=== PATIENT | male | born 1970 | race Caucasian/White ===

== ENCOUNTER 2019-04-07 21:53 | Emergency (ER) | payer SELFPAY ==
[~2019-04-07] VITALS: Ht 182.9 cm; Wt 90.7 kg
[2019-04-07] MEDS ORDERED: cloNIDine HCL 0.1 MG TAB PO ONE ×2 (22:15→23:15)
[2019-04-07 22:35] LABS: Basophils # (auto) 0 uL; Basophils % (auto) 0.5 % (0.0-2.0); Eosinophils # (auto) 0.1 uL; Eosinophils % (auto) 0.6 % (0.0-7.0); Hemoglobin 15.5 g/dL (13.5-17.5); Lymphocytes # (auto) 1.5 uL; Lymphocytes % (auto) 16.4 % (10.0-50.0); Mean Corpuscular Hemoglobin 29.1 pg (28.0-32.0); Mean Corpuscular Hgb Conc. 34.4 g/dL (32.0-36.0); Mean Corpuscular Volume 84.8 fL (80.0-100.0); Monocytes # (auto) 0.5 uL; Monocytes % (auto) 5.7 % (0.0-12.0); Neutrophils % (auto) 76.8 % (37.0-80.0); Platelet Count (auto) 214 10^3/uL (140-450); Red Cell Distribution Width 14.2 % (11.8-14.3); White Blood Cell 9.2 10^3/uL (4.4-10.8)
[2019-04-07 22:51] LABS: Albumin 3.9 g/dL (3.4-5.0); Anion Gap 4 (5-15); Blood Urea Nitrogen 9 mg/dL (7-18); Calcium 8.6 mg/dL (8.5-10.1); Carbon Dioxide 31 mmol/L (21-32); Chloride 101 mmol/L (98-107); Glucose 101 mg/dL (74-106); Sodium 136 mmol/L (136-145)
[2019-04-07 22:57] LABS: Alanine Aminotransferase 25 U/L (16-61); Alkaline Phosphatase 121 U/L (45-117); Aspartate Aminotransferase 23 U/L (15-37); BUN/Creatinine Ratio 7.8; Bilirubin, Total 0.6 mg/dL (0.2-1.0); GFR African American 86 mL/min; GFR Non-African American 71 mL/min
[2019-04-08 00:24] VITALS: BP 138/98
== END 2019-04-08 00:33 ==
LOC: ER 21:56 → EEVIPCON 21:56 → ER 04-08 00:33
DX: I16.0 Hypertensive urgency (principal)
CPT/HCPCS: 36415; 71045; 80053; 83880; 84484; 85025; 93005

== ENCOUNTER 2021-07-08 08:24 | Emergency (ER) | payer MEDICAID, OTHER ==
[~2021-07-08] VITALS: Ht 188 cm; Wt 104.3 kg
[2021-07-08 08:32] VITALS: BP 136/75
== END 2021-07-08 16:39 | disposition home or self-care (01) ==
LOC: EDUNIT# 08:24 → ER 08:24 → EDBD 08:24 → EEVIPCON 08:24 → ER 15:52
DX: F10.129 Alcohol abuse with intoxication, unspecified (principal); R09.2 Respiratory arrest; I10 Essential (primary) hypertension; F17.210 Nicotine dependence, cigarettes, uncomplicated; Z90.89 Acquired absence of other organs; Y90.9 Presence of alcohol in blood, level not specified
CPT/HCPCS: 71045; 93005